=== PATIENT | female | born 2000 | race Native Hawaiian/Other Pacific Islander ===

== ENCOUNTER 2019-01-06 10:46 | Emergency (ER) | payer OTHER ==
[~2019-01-06] VITALS: Ht 167.6 cm; Wt 90.8 kg
[~2019-01-06 10:46] MED LIST: DOXY-214 PO
[2019-01-06 11:21] VITALS: BP 140/70; PULSE 110; RESP 18; Ht 167.6 cm; Wt 90.8 kg
[2019-01-06] MEDS ORDERED: CEFTRIAXONE 250 MG INJ IM ONE (14:00)
[2019-01-06] MEDS ORDERED: LIDOCAINE 1% (MPF) 5 ML VIAL INJ ONE (14:00)
== END 2019-01-06 15:13 | disposition left against medical advice (07) ==
LOC: FTE 10:46
DX: R10.2 Pelvic and perineal pain (principal)
CPT/HCPCS: 81001; 81025; 87210; 87591; Z7502; 99284